=== PATIENT | male | born 1955 | race Caucasian/White ===

== ENCOUNTER 2020-07-04 12:44 | Emergency (ER) | payer OTHER ==
[~2020-07-04] VITALS: Ht 180.3 cm; Wt 96.2 kg
[2020-07-04] MEDS ORDERED: ASA81BEC PO (12:56)
[2020-07-04] MEDS ORDERED: ATORVASTATIN CA80 MG PO (12:56)
[2020-07-04] MEDS ORDERED: METOPROLOL SUCC25 M1 PO (12:57)
[2020-07-04 13:54] VITALS: BP 117/72
[2020-07-04] MEDS ORDERED: PROMETH-CODEIN 65 ML PO (14:25)
[2020-07-04] MEDS ORDERED: PROAIR HFA8.5 GM INH (14:25)
[2020-07-04] MEDS ORDERED: ZPAK PO (14:25)
== END 2020-07-04 14:52 | disposition home or self-care (01) ==
LOC: ER 12:44
DX: J18.9 Pneumonia, unspecified organism (principal); E11.9 Type 2 diabetes mellitus without complications; F17.210 Nicotine dependence, cigarettes, uncomplicated; Z20.828 Contact with and (suspected) exposure to other viral communicable diseases; Z98.61 Coronary angioplasty status; E78.5 Hyperlipidemia, unspecified; Z79.899 Other long term (current) drug therapy; Z79.82 Long term (current) use of aspirin